=== PATIENT | female | born 1980 | race Caucasian/White ===

== ENCOUNTER 2020-12-03 15:41 | Emergency (ER) | payer OTHER ==
[~2020-12-03 15:41] MED LIST: COMPAZINE5 MG PO
== END 2020-12-03 21:30 | disposition home or self-care (01) ==
LOC: FER 15:41
DX: U07.1 COVID-19 (principal); Z88.2 Allergy status to sulfonamides; Z90.49 Acquired absence of other specified parts of digestive tract; Z88.1 Allergy status to other antibiotic agents; Z88.8 Allergy status to other drugs, medicaments and biological substances
CPT/HCPCS: M0243; Q0244